=== PATIENT | female | born 1945 | race Caucasian/White ===

== ENCOUNTER → 2016-11-15 | Outpatient (CLI) | payer MEDICARE, BC | LOC: MC.RAD 11-13 13:00 | DX: Z12.31 Encounter for screening mammogram for malignant neoplasm of breast (principal) ==

== ENCOUNTER → 2017-11-19 | Outpatient (CLI) | payer MEDICARE, BC | LOC: MC.RAD 10:23 | DX: Z12.31 Encounter for screening mammogram for malignant neoplasm of breast (principal) ==

== ENCOUNTER → 2018-03-25 | Outpatient (CLI) | payer MEDICARE, BC | LOC: COL.PUL 12:33 | DX: J43.8 Other emphysema (principal); Z87.891 Personal history of nicotine dependence ==

== ENCOUNTER → 2018-06-20 | Outpatient (CLI) | payer MEDICARE, BC | LOC: COL.PUL 09:37 | DX: J43.9 Emphysema, unspecified (principal); Z87.891 Personal history of nicotine dependence | CPT/HCPCS: J7674 ==

== ENCOUNTER 2018-10-01 13:49 | Outpatient (CLI) | payer MEDICARE, BC ==
[~2018-10-01] VITALS: Ht 152.4 cm; Wt 49.8 kg
[~2018-10-01 13:49] MED LIST: ALLEGRA 180MG180 MG PO; PROAIR HFA0.09 MG/AC IH
[2018-10-01 14:10] VITALS: BP 112/78; PULSE 59; TEMP 97.7
== END 2018-10-01 14:12 | disposition home or self-care (01) ==
LOC: EUO 13:49
DX: J82 Pulmonary eosinophilia, not elsewhere classified (principal); Z79.899 Other long term (current) drug therapy
CPT/HCPCS: C9466

== ENCOUNTER 2018-10-29 13:43 | Outpatient (CLI) | payer MEDICARE, BC ==
[~2018-10-29] VITALS: Ht 152.4 cm; Wt 49.1 kg
[2018-10-29] MEDS ORDERED: FASENRA30 MG/1 ML SQ (14:01)
[2018-10-29 14:07] VITALS: BP 117/59; PULSE 62; TEMP 98
== END 2018-10-29 14:24 | disposition home or self-care (01) ==
LOC: EUO 13:43
DX: J82 Pulmonary eosinophilia, not elsewhere classified (principal); Z79.899 Other long term (current) drug therapy
CPT/HCPCS: C9466

== ENCOUNTER 2018-12-24 14:00 | Outpatient (CLI) | payer MEDICARE, BC ==
[~2018-12-24] VITALS: Ht 152.4 cm; Wt 48.9 kg
[~2018-12-24 14:00] MED LIST changes: +FASENRA30 MG/1 ML SQ
[2018-12-24 14:25] VITALS: BP 114/59; PULSE 57; TEMP 97.4
== END 2018-12-24 14:26 | disposition home or self-care (01) ==
LOC: EUO 14:00
DX: J82 Pulmonary eosinophilia, not elsewhere classified (principal); Z79.899 Other long term (current) drug therapy
CPT/HCPCS: J0517

== ENCOUNTER → 2019-01-05 | Outpatient (CLI) | payer MEDICARE, BC | LOC: MC.RAD 09:13 | DX: Z12.31 Encounter for screening mammogram for malignant neoplasm of breast (principal) ==

== ENCOUNTER 2019-02-18 13:45 | Outpatient (RCR) | payer MEDICARE, BC ==
[~2019-02-18] VITALS: Ht 152.4 cm; Wt 49.7 kg
[2019-02-18 14:03] VITALS: BP 119/63; PULSE 61; TEMP 97.7
== END 2019-02-18 14:04 | disposition home or self-care (01) ==
LOC: EUO 13:45
DX: J82 Pulmonary eosinophilia, not elsewhere classified (principal); Z79.899 Other long term (current) drug therapy
CPT/HCPCS: J0517

== ENCOUNTER 2019-04-15 14:21 | Outpatient (RCR) | payer MEDICARE, BC ==
[~2019-04-15] VITALS: Ht 152.4 cm; Wt 49.8 kg
[2019-04-15 14:51] VITALS: BP 117/65; PULSE 66; TEMP 98
== END 2019-04-15 15:00 | disposition home or self-care (01) ==
LOC: EUO 14:21
DX: J82 Pulmonary eosinophilia, not elsewhere classified (principal); Z79.899 Other long term (current) drug therapy
CPT/HCPCS: J0517

== ENCOUNTER 2019-06-10 13:52 | Outpatient (CLI) | payer MEDICARE, BC ==
[~2019-06-10] VITALS: Ht 152.4 cm; Wt 49.9 kg
[2019-06-10 14:06] VITALS: BP 117/55; PULSE 77; TEMP 97.5
== END 2019-06-10 14:17 | disposition home or self-care (01) ==
LOC: EUO 13:52
DX: J82 Pulmonary eosinophilia, not elsewhere classified (principal); Z79.899 Other long term (current) drug therapy
CPT/HCPCS: J0517

== ENCOUNTER 2019-08-05 13:55 | Outpatient (CLI) | payer MEDICARE, BC ==
[~2019-08-05] VITALS: Ht 152.4 cm; Wt 49.9 kg
[2019-08-05 14:29] VITALS: BP 121/67; PULSE 58; TEMP 97.5
== END 2019-08-05 14:43 | disposition home or self-care (01) ==
LOC: EUO 13:55
DX: J82 Pulmonary eosinophilia, not elsewhere classified (principal); Z79.899 Other long term (current) drug therapy
CPT/HCPCS: J0517

== ENCOUNTER 2019-09-30 14:02 | Outpatient (CLI) | payer MEDICARE, BC ==
[~2019-09-30] VITALS: Ht 152.4 cm; Wt 49.0 kg
[2019-09-30 14:28] VITALS: BP 94/71; PULSE 58; TEMP 97.8
== END 2019-09-30 14:41 | disposition home or self-care (01) ==
LOC: EUO 14:02
DX: J82 Pulmonary eosinophilia, not elsewhere classified (principal); Z79.899 Other long term (current) drug therapy
CPT/HCPCS: J0517

== ENCOUNTER 2019-11-25 13:50 | Outpatient (CLI) | payer MEDICARE, BC ==
[~2019-11-25] VITALS: Ht 152.4 cm; Wt 48.6 kg
[2019-11-25 14:00] VITALS: PULSE 59; TEMP 97.2
== END 2019-11-25 15:32 | disposition home or self-care (01) ==
LOC: EUO 13:50
DX: J82 Pulmonary eosinophilia, not elsewhere classified (principal); Z79.899 Other long term (current) drug therapy
CPT/HCPCS: J0517

== ENCOUNTER → 2020-01-18 | Outpatient (CLI) | payer MEDICARE, BC | LOC: MC.RAD 01-15 14:15 | DX: Z12.31 Encounter for screening mammogram for malignant neoplasm of breast (principal) ==

== ENCOUNTER 2020-01-20 14:05 | Outpatient (CLI) | payer MEDICARE, BC ==
[~2020-01-20] VITALS: Ht 152.4 cm; Wt 49.3 kg
[2020-01-20 14:23] VITALS: BP 152/79; PULSE 65; TEMP 97.8
== END 2020-01-20 14:54 | disposition home or self-care (01) ==
LOC: EUO 14:05
DX: J82 Pulmonary eosinophilia, not elsewhere classified (principal); Z79.899 Other long term (current) drug therapy
CPT/HCPCS: J0517

== ENCOUNTER 2020-03-16 14:02 | Outpatient (CLI) | payer MEDICARE, BC ==
[~2020-03-16] VITALS: Ht 152.4 cm; Wt 48.9 kg
[2020-03-16 14:32] VITALS: BP 144/66; PULSE 68; TEMP 97.8
== END 2020-03-16 14:33 | disposition home or self-care (01) ==
LOC: EUO 14:02
DX: J82 Pulmonary eosinophilia, not elsewhere classified (principal); Z79.899 Other long term (current) drug therapy
CPT/HCPCS: J0517

== ENCOUNTER 2020-05-11 13:54 | Outpatient (CLI) | payer MEDICARE, BC ==
[~2020-05-11] VITALS: Ht 152.4 cm; Wt 48.2 kg
[2020-05-11 14:39] VITALS: BP 131/76; PULSE 69; TEMP 98
== END 2020-05-11 14:39 | disposition home or self-care (01) ==
LOC: EUO 13:54
DX: J82 Pulmonary eosinophilia, not elsewhere classified (principal); Z79.899 Other long term (current) drug therapy
CPT/HCPCS: J0517

== ENCOUNTER 2020-07-06 13:43 | Outpatient (CLI) | payer MEDICARE, BC ==
[~2020-07-06] VITALS: Ht 152.4 cm; Wt 48.3 kg
[2020-07-06 13:59] VITALS: BP 124/65; PULSE 68; TEMP 98.6
== END 2020-07-06 16:17 | disposition home or self-care (01) ==
LOC: EUO 13:43
DX: J82 Pulmonary eosinophilia, not elsewhere classified (principal); Z79.899 Other long term (current) drug therapy
CPT/HCPCS: J0517

== ENCOUNTER 2020-08-31 13:17 | Outpatient (CLI) | payer MEDICARE, BC ==
[~2020-08-31] VITALS: Ht 152.4 cm; Wt 45.6 kg
[2020-08-31 14:02] VITALS: BP 130/75; PULSE 78; TEMP 97.2
== END 2020-08-31 14:00 | disposition home or self-care (01) ==
LOC: EUO 13:17
DX: J82.83 Eosinophilic asthma (principal); Z79.899 Other long term (current) drug therapy
CPT/HCPCS: J0517

== ENCOUNTER 2020-10-26 13:23 | Outpatient (CLI) | payer MEDICARE, BC ==
[~2020-10-26] VITALS: Ht 152.4 cm; Wt 45.0 kg
[2020-10-26 13:51] VITALS: BP 118/77; PULSE 60; TEMP 98.5
== END 2020-10-26 13:58 | disposition home or self-care (01) ==
LOC: EUO 13:23
DX: J82.83 Eosinophilic asthma (principal)
CPT/HCPCS: J0517

== ENCOUNTER 2020-12-21 13:18 | Outpatient (CLI) | payer MEDICARE, BC ==
[~2020-12-21] VITALS: Ht 152.4 cm; Wt 45.0 kg
[2020-12-21 13:52] VITALS: BP 107/64; PULSE 78; TEMP 97.5
== END 2020-12-21 13:50 | disposition home or self-care (01) ==
LOC: EUO 13:18
DX: J82.83 Eosinophilic asthma (principal); Z79.899 Other long term (current) drug therapy
CPT/HCPCS: J0517

== ENCOUNTER → 2021-01-27 | Outpatient (CLI) | payer MEDICARE, BC | LOC: MC.RAD 10:15 | DX: Z12.31 Encounter for screening mammogram for malignant neoplasm of breast (principal) ==

== ENCOUNTER → 2021-02-09 | Outpatient (CLI) | payer MEDICARE, BC | LOC: MC.RAD 09:10 | DX: N63.41 Unspecified lump in right breast, subareolar (principal) ==

== ENCOUNTER 2021-02-15 13:44 | Outpatient (CLI) | payer MEDICARE, BC ==
[~2021-02-15] VITALS: Ht 152.4 cm; Wt 42.3 kg
[2021-02-15 14:00] VITALS: BP 160/69; PULSE 63; TEMP 97.7
== END 2021-02-15 14:40 | disposition home or self-care (01) ==
LOC: EUO 13:44
DX: J82.83 Eosinophilic asthma (principal); Z79.899 Other long term (current) drug therapy
CPT/HCPCS: J0517

== ENCOUNTER 2021-04-12 12:42 | Outpatient (CLI) | payer MEDICARE, BC ==
[~2021-04-12] VITALS: Ht 152.4 cm; Wt 64.2 kg
[2021-04-12 13:10] VITALS: BP 119/70; PULSE 64; TEMP 97.6
== END 2021-04-12 13:30 | disposition home or self-care (01) ==
LOC: EUO 12:42
DX: J82.83 Eosinophilic asthma (principal)
CPT/HCPCS: J0517

== ENCOUNTER 2021-06-07 13:01 | Outpatient (CLI) | payer MEDICARE, BC ==
[~2021-06-07] VITALS: Ht 152.4 cm; Wt 41.4 kg
[2021-06-07 13:45] VITALS: BP 116/68; PULSE 60; TEMP 98
== END 2021-06-07 13:53 | disposition home or self-care (01) ==
LOC: EUO 13:01
DX: J82.83 Eosinophilic asthma (principal); Z79.899 Other long term (current) drug therapy
CPT/HCPCS: J0517

== ENCOUNTER 2021-08-02 13:28 | Outpatient (CLI) | payer MEDICARE, BC ==
[~2021-08-02] VITALS: Ht 152.4 cm; Wt 42.0 kg
[2021-08-02 14:04] VITALS: BP 134/74; PULSE 66; TEMP 98.4
== END 2021-08-02 14:08 ==
LOC: EUO 13:28
DX: J82.83 Eosinophilic asthma (principal); Z79.899 Other long term (current) drug therapy
CPT/HCPCS: J0517

== ENCOUNTER 2021-09-27 13:36 | Outpatient (CLI) | payer MEDICARE, BC ==
[2021-09-27 13:52] VITALS: BP 126/68; PULSE 68; TEMP 98.5
== END 2021-09-27 15:09 | disposition home or self-care (01) ==
LOC: EUO 13:36
DX: J45.909 Unspecified asthma, uncomplicated (principal); Z79.899 Other long term (current) drug therapy
CPT/HCPCS: J0517

== ENCOUNTER 2021-11-22 13:36 | Outpatient (CLI) | payer MEDICARE, BC ==
[~2021-11-22] VITALS: Ht 152.4 cm; Wt 40.8 kg
[2021-11-22 14:17] VITALS: BP 136/72; PULSE 62; TEMP 98.1
== END 2021-11-22 14:18 | disposition home or self-care (01) ==
LOC: EUO 13:36
DX: J82.83 Eosinophilic asthma (principal); Z79.899 Other long term (current) drug therapy
CPT/HCPCS: J0517

== ENCOUNTER → 2022-02-15 | Outpatient (CLI) | payer MEDICARE, BC | LOC: COL.VAS 12:30 | DX: M79.662 Pain in left lower leg (principal); M25.562 Pain in left knee; M79.89 Other specified soft tissue disorders ==

== ENCOUNTER 2022-03-14 13:41 | Outpatient (CLI) | payer MEDICARE, BC ==
[~2022-03-14] VITALS: Ht 152.4 cm; Wt 40.2 kg
[2022-03-14 14:00] VITALS: BP 138/78; PULSE 60; TEMP 98.4
== END 2022-03-14 16:10 | disposition home or self-care (01) ==
LOC: EUO 13:41
DX: J82.83 Eosinophilic asthma (principal)
CPT/HCPCS: J0517

== ENCOUNTER → 2022-04-24 | Outpatient (CLI) | payer MEDICARE, BC | LOC: COL.VAS 07:22 | DX: M79.662 Pain in left lower leg (principal); R22.42 Localized swelling, mass and lump, left lower limb ==

== ENCOUNTER 2022-05-09 13:34 | Outpatient (CLI) | payer MEDICARE, BC ==
[~2022-05-09] VITALS: Ht 152.4 cm; Wt 41.0 kg
[2022-05-09 13:56] VITALS: BP 126/70; PULSE 75; TEMP 98.3
== END 2022-05-09 14:19 ==
LOC: EUO 13:34
DX: J82.83 Eosinophilic asthma (principal)
CPT/HCPCS: J0517

== ENCOUNTER 2022-07-04 13:35 | Outpatient (CLI) | payer MEDICARE, BC ==
[~2022-07-04] VITALS: Ht 152.4 cm; Wt 41.3 kg
[2022-07-04 14:13] VITALS: BP 116/69; PULSE 66; TEMP 98.7
== END 2022-07-04 14:20 ==
LOC: EUO 13:35
DX: J82.83 Eosinophilic asthma (principal); Z79.899 Other long term (current) drug therapy
CPT/HCPCS: J0517

== ENCOUNTER 2022-08-29 13:45 | Outpatient (CLI) | payer MEDICARE, BC ==
[~2022-08-29] VITALS: Ht 152.4 cm; Wt 41.6 kg
[2022-08-29 14:16] VITALS: BP 126/70; PULSE 80; TEMP 98.2
== END 2022-08-29 14:17 ==
LOC: EUO 13:45
DX: J82.83 Eosinophilic asthma (principal)
CPT/HCPCS: J0517

== ENCOUNTER 2022-12-19 13:34 | Outpatient (CLI) | payer MEDICARE, BC ==
[~2022-12-19] VITALS: Ht 152.4 cm; Wt 42.5 kg
[2022-12-19 14:01] VITALS: BP 119/69; PULSE 77; TEMP 98.1
== END 2022-12-19 14:02 ==
LOC: EUO 13:34
DX: J82.83 Eosinophilic asthma (principal)
CPT/HCPCS: J0517

== ENCOUNTER → 2023-01-02 | Outpatient (CLI) | payer MEDICARE, BC | LOC: COL.RAD 13:33 | DX: R42 Dizziness and giddiness (principal) | CPT/HCPCS: A9575 ==

== ENCOUNTER 2023-02-13 13:35 | Outpatient (CLI) | payer MEDICARE, BC ==
[~2023-02-13] VITALS: Ht 152.4 cm; Wt 42.5 kg
[2023-02-13 13:59] VITALS: BP 115/74; PULSE 79; TEMP 98.5
== END 2023-02-13 14:54 | disposition home or self-care (01) ==
LOC: EUO 13:35
DX: J82.83 Eosinophilic asthma (principal); Z79.899 Other long term (current) drug therapy
CPT/HCPCS: J0517

== ENCOUNTER 2023-04-10 13:39 | Outpatient (CLI) | payer MEDICARE, BC ==
[~2023-04-10] VITALS: Ht 152.4 cm; Wt 42.9 kg
[2023-04-10 14:20] VITALS: BP 109/72; PULSE 61; TEMP 98
== END 2023-04-10 14:22 ==
LOC: EUO 13:39
DX: J82.83 Eosinophilic asthma (principal)
CPT/HCPCS: J0517

== ENCOUNTER 2023-11-20 13:14 | Outpatient (CLI) | payer MEDICARE, BC ==
[~2023-11-20] VITALS: Ht 152.4 cm; Wt 42.9 kg
[2023-11-20 13:22] VITALS: BP 129/69; PULSE 80; TEMP 97.4
== END 2023-11-20 13:51 ==
LOC: EUO 13:14
DX: J82.83 Eosinophilic asthma (principal)
CPT/HCPCS: J0517

== ENCOUNTER 2024-01-15 13:16 | Outpatient (CLI) | payer MEDICARE, BC ==
[~2024-01-15] VITALS: Ht 152.4 cm; Wt 43.3 kg
[2024-01-15 14:19] VITALS: BP 133/87; PULSE 78; TEMP 97.4
== END 2024-01-15 14:10 | disposition home or self-care (01) ==
LOC: EUO 13:16
DX: J82.83 Eosinophilic asthma (principal)
CPT/HCPCS: J0517

== ENCOUNTER 2024-03-11 12:54 | Outpatient (CLI) | payer MEDICARE, BC ==
[~2024-03-11] VITALS: Ht 152.4 cm; Wt 40.7 kg
[2024-03-11 13:13] VITALS: BP 117/65; PULSE 73; TEMP 98
== END 2024-03-11 13:15 ==
LOC: EUO 12:54
DX: J82.83 Eosinophilic asthma (principal)
CPT/HCPCS: J0517

== ENCOUNTER 2024-05-06 13:22 | Outpatient (CLI) | payer MEDICARE, BC ==
[~2024-05-06] VITALS: Ht 152.4 cm; Wt 42.3 kg
[2024-05-06 14:00] VITALS: BP 112/70; PULSE 80; TEMP 97.7
== END 2024-05-06 14:04 ==
LOC: EUO 13:22
DX: J82.83 Eosinophilic asthma (principal)
CPT/HCPCS: J0517

== ENCOUNTER 2024-07-01 12:52 | Outpatient (CLI) | payer MEDICARE, BC, OTHER ==
[~2024-07-01] VITALS: Ht 152.4 cm; Wt 42.2 kg
[2024-07-01 13:11] VITALS: BP 125/71; PULSE 67; TEMP 97.4
== END 2024-07-01 13:33 ==
LOC: EUO 12:52
DX: J82.83 Eosinophilic asthma (principal)
CPT/HCPCS: J0517

== ENCOUNTER → 2024-07-28 | Outpatient (CLI) | payer MEDICARE | LOC: MC.RAD 13:11 | DX: Z12.31 Encounter for screening mammogram for malignant neoplasm of breast (principal) ==

== ENCOUNTER 2024-08-26 12:40 | Outpatient (CLI) | payer MEDICARE, BC ==
[2024-08-26 13:25] VITALS: BP 129/75; PULSE 70; TEMP 98.1
== END 2024-08-26 14:06 ==
LOC: EUO 12:40
DX: J82.83 Eosinophilic asthma (principal); Z79.899 Other long term (current) drug therapy
CPT/HCPCS: J0517